=== PATIENT | female | born 1965 | race Two or more races ===

== ENCOUNTER 2018-09-18 19:59 | Inpatient (IN) | payer OTHER ==
[~2018-09-18] VITALS: Ht 157.5 cm; Wt 77.1 kg
[2018-09-18] MEDS ORDERED: TOPROL XL25 MG PO (20:43)
[2018-09-18] MEDS ORDERED: EVISTA60 MG PO (20:44)
[2018-09-18] MEDS ORDERED: DAFLONEX-XL TA1 EACH PO (20:44)
[2018-09-18] MEDS ORDERED: TRENTAL PO (20:44)
[2018-09-18] MEDS ORDERED: ZESTRIL5 MG PO (20:45)
[2018-09-18] MEDS ORDERED: LASIX40 MG PO (20:45)
--- NOTE | 2018-09-18 20:46 | NUR ---
PACIENTE ALERTA Y ORIENTADA X3, CON BUEN PATRON RESPIRATORIO Y SIGNOS VITALES ESTABLES, REFIERE SAFIA DOLOR EN PIERNA DERECHA Y RUFINA. SE COLOCA EN PATRICIA EN ESPERA DE SER EVALUADA.
--- NOTE | 2018-09-18 22:15 | NUR ---
SE ORIENTA PTE SOBRE TRATAMIENTO. SE LLOYD MUESTRAS DE YORDY Y SE CANALIZA PERIFERALMENTE POR RN CHAU QUIEN ADMINISTRA MEDICAMENTOS ORDENADOS. PTE PENDIENTE A RE-EVALUACION POR DRA. VINCENT.
--- NOTE | 2018-09-19 01:35 | NUR ---
SE RECIBE PACIENTE ALERTA Y ORIENTADA X3 EN CAMA CON BARANDAS ELEVADAS Y CABEZERA A [address] ARE[address] DE VENOPUNCION PATENTE Y YANY DE EDEMA BAJANDO MEDICAMENTO ORDENADOS. PACIENTE NIEGA DOLOR U OTRO SINTOMA.
== END 2018-09-22 20:57 | disposition home or self-care (01) | DRG 603 ==
LOC: ER 19:59 → MEDJ 09-19 09:45
PROVIDERS: ADMIT Internal Medicine
DX: L03.115 Cellulitis of right lower limb (principal); R65.10 Systemic inflammatory response syndrome (SIRS) of non-infectious origin without acute organ dysfunction; I10 Essential (primary) hypertension; I87.8 Other specified disorders of veins; D72.828 Other elevated white blood cell count; C50.811 Malignant neoplasm of overlapping sites of right female breast; N62 Hypertrophy of breast

== ENCOUNTER 2019-02-02 12:51 | Emergency (ER) | payer OTHER ==
[~2019-02-02] VITALS: Ht 154.9 cm; Wt 79.4 kg
[~2019-02-02 12:51] MED LIST: DAFLONEX-XL TA1 EACH PO; EVISTA60 MG PO; LASIX40 MG PO; TOPROL XL25 MG PO; TRENTAL PO; ZESTRIL5 MG PO
[2019-02-02] MEDS ORDERED: MUPIROCIN22 GM TOP (19:15)
[2019-02-02] MEDS ORDERED: HIBICLENS118 ML TOP (19:15)
[2019-02-02] MEDS ORDERED: DOXYCYCLINE HY100 MG PO (19:15)
== END 2019-02-02 19:35 | disposition home or self-care (01) ==
LOC: ER 12:51
DX: L03.115 Cellulitis of right lower limb (principal)

== ENCOUNTER 2020-11-24 14:39 | Outpatient (CLI) | payer OTHER ==
[~2020-11-24 14:39] MED LIST changes: +DOXYCYCLINE HY100 MG PO; +HIBICLENS118 ML TOP; +MUPIROCIN22 GM TOP
== END 2020-11-24 15:19 | disposition home or self-care (01) ==
LOC: OFIC 805 14:39
PROVIDERS: ATTEND Otolaryngology Otology & Neurotology
DX: T16.1XXA Foreign body in right ear, initial encounter (principal); H60.542 Acute eczematoid otitis externa, left ear; H92.12 Otorrhea, left ear

== ENCOUNTER 2021-03-02 08:45 | Emergency (ER) | payer OTHER ==
[~2021-03-02] VITALS: Ht 157.5 cm; Wt 90.7 kg
[2021-03-02] MEDS ORDERED: ULTRACET PO (11:57)
== END 2021-03-02 12:12 | disposition home or self-care (01) ==
LOC: ER 08:45
DX: S83.8X1A Sprain of other specified parts of right knee, initial encounter (principal); Y93.39 Activity, other involving climbing, rappelling and jumping off; Y92.811 Bus as the place of occurrence of the external cause; Y99.8 Other external cause status

== ENCOUNTER 2021-10-29 12:27 | Emergency (ER) | payer OTHER ==
[~2021-10-29] VITALS: Ht 154.9 cm; Wt 81.6 kg
[~2021-10-29 12:27] MED LIST changes: +ULTRACET PO
== END 2021-10-29 14:52 | disposition home or self-care (01) ==
LOC: ER 12:27
DX: R07.89 Other chest pain (principal); I10 Essential (primary) hypertension

== ENCOUNTER 2022-08-16 00:07 | Emergency (ER) | payer OTHER ==
[~2022-08-16] VITALS: Ht 152.4 cm; Wt 77.1 kg
[2022-08-16] MEDS ORDERED: ZITHROMAX500 MG PO (04:21)
[2022-08-16] MEDS ORDERED: ZYNCOF 20-400120 ML PO (04:21)
[2022-08-16] MEDS ORDERED: BUDESONIDE0.5 MG/2 M IH (04:21)
[2022-08-16] MEDS ORDERED: ALBUTEROL2.5 MG/3 M IH (04:21)
== END 2022-08-16 04:23 ==
LOC: ER 00:07
DX: J40 Bronchitis, not specified as acute or chronic (principal); E11.9 Type 2 diabetes mellitus without complications; Z79.84 Long term (current) use of oral hypoglycemic drugs; I10 Essential (primary) hypertension; Z20.822 Contact with and (suspected) exposure to COVID-19

== ENCOUNTER 2024-11-20 09:23 | Outpatient (CLI) | payer OTHER ==
[~2024-11-20 09:23] MED LIST changes: +ALBUTEROL2.5 MG/3 M IH; +BUDESONIDE0.5 MG/2 M IH; +ZITHROMAX500 MG PO; +ZYNCOF 20-400120 ML PO
== END 2024-11-20 09:30 | disposition home or self-care (01) ==
LOC: MAMO-SONO 09:23
PROVIDERS: ATTEND Obstetrics & Gynecology
DX: N63.10 Unspecified lump in the right breast, unspecified quadrant (principal); N63.20 Unspecified lump in the left breast, unspecified quadrant

== ENCOUNTER → 2024-12-12 | Emergency (ER) | payer OTHER ==
[~2024-12-12] VITALS: Ht 152.4 cm; Wt 72.6 kg
[~2024-12-12] MED LIST changes: +CEFTRIAXONE SODIUM 1,000 MG VIAL IM STA; +CEFTRIAXONE SODIUM 1,000 MG VIAL ONE; +HUMALOG100 UNIT/2 SQ; +HYDROCODONE/CHLORPHEN P-STIREX 5 ML ML PO STA; +LANTUS SOL100 UNIT/1 SQ; +LIDOCAINE HCL/MPF 1% 5ML VIAL IJ ONE; +METFORMIN HCL500 M3; +NABUMETONE750 MG PO; +SULINDAC200 MG PO; +TOPROL XL25 M1; +TRETAL
== END | disposition home or self-care (01) ==
LOC: ER 19:56
DX: R53.81 Other malaise (principal); J06.9 Acute upper respiratory infection, unspecified